=== PATIENT | female | born 1950 | race Caucasian/White ===

== ENCOUNTER 2022-09-11 14:42 | Emergency (ER) | payer BC ==
[~2022-09-11 14:42] MED LIST: CIPROFLOXACIN500 MG PO; MEDROL DOSEPAK4 MG PO
== END 2022-09-11 15:14 | disposition home or self-care (01) ==
LOC: ED 14:42
DX: S80.862A Insect bite (nonvenomous), left lower leg, initial encounter (principal); Z88.6 Allergy status to analgesic agent; W57.XXXA Bitten or stung by nonvenomous insect and other nonvenomous arthropods, initial encounter; Y93.89 Activity, other specified; Y92.89 Other specified places as the place of occurrence of the external cause; Y99.8 Other external cause status

== ENCOUNTER 2024-10-21 10:48 | Emergency (ER) | payer BC ==
[~2024-10-21] VITALS: Ht 154.9 cm; Wt 90.7 kg
[2024-10-21] MEDS ORDERED: VIBRAMYCIN100 MG PO (11:06)
[2024-10-21] MEDS ORDERED: Doxycycline Hyclate 100 MG CAPSULE PO ONE (11:10)
== END 2024-10-21 11:14 | disposition home or self-care (01) ==
LOC: ED 10:48
DX: A69.20 Lyme disease, unspecified (principal); Z88.8 Allergy status to other drugs, medicaments and biological substances

== ENCOUNTER 2025-02-21 12:24 | Emergency (ER) | payer OTHER ==
[~2025-02-21] VITALS: Ht 210.8 cm; Wt 97.5 kg
[~2025-02-21 12:24] MED LIST changes: +VIBRAMYCIN100 MG PO
[2025-02-21 13:11] LABS: MEAN CELL VOLUME 89.5 fl (81.0-99.0); MEAN CORPUSCULAR HGB 30.2 pg (27.0-31.0); MEAN PLATELET VOLUME 10.4 fl (9.6-12.3); NUCLEATED RED BLOOD CELL 0.0 % (0.0-0.0); NUCLEATED RED BLOOD CELL 0.0 10*3/uL (0.0-0.0); PLATELET COUNT AUTOMATED 91 10*3/uL (130-400); RED CELL DISTRI WIDTH 13.0 % (0-14.5)
[2025-02-21 13:13] LABS: BILIRUBIN Negative (Negative); BLOOD Negative (Negative); CLARITY Clear (Clear); COLOR Yellow (Yellow); KETONE Negative (Negative); LEUKO ESTERASE Negative (Negative); NITRITE Negative (Negative); PH 5.0 (4.5-8.0); SPECIFIC GRAVITY <= 1.005 (1.001-1.030); UROBILINOGEN 0.2 E.U./dl (0.0-1.0)
[2025-02-21 13:23] LABS: BACTERIA 2+; RBC 0-2 rbc/hpf (0-2); WBC 0-2 wbc/hpf (0-5)
[2025-02-21 13:32] LABS: BUN 25.0 mg/dl (9-23); CPK 69.0 U/L (34-171); SGPT/ALT 17.0 U/L (5-49)
[2025-02-21 13:37] LABS: MANUAL DIFF REFLEX YES
[2025-02-21 13:43] LABS: PLATELET SUFFICIENCY LOW (NORMAL)
[2025-02-21] MEDS ORDERED: SODIUM CHLORIDE 0.9% 1,000 ML IV ONE (13:45)
== END 2025-02-21 14:19 | disposition home or self-care (01) ==
LOC: ED 12:24
PROVIDERS: Nurse Practitioner Family
DX: S30.0XXA Contusion of lower back and pelvis, initial encounter (principal); S20.213A Contusion of bilateral front wall of thorax, initial encounter; Z88.6 Allergy status to analgesic agent; W19.XXXA Unspecified fall, initial encounter; Y93.89 Activity, other specified; Y92.89 Other specified places as the place of occurrence of the external cause; Y99.8 Other external cause status

== ENCOUNTER 2025-03-01 07:29 | Emergency (ER) | payer OTHER ==
[~2025-03-01] VITALS: Wt 90.7 kg
[2025-03-01] MEDS ORDERED: FUROSEMIDE40 MG PO (07:48)
[2025-03-01] MEDS ORDERED: POTASSIUM CHLO20 ME3 PO (07:48)
[2025-03-01] MEDS ORDERED: LOSARTAN POTAS100 M1 PO (07:48)
[2025-03-01] MEDS ORDERED: METOPROLOL SUCC25 M2 PO (07:48)
[2025-03-01 08:31] LABS: MEAN CELL VOLUME 90.1 fl (81.0-99.0); MEAN CORPUSCULAR HGB 30.0 pg (27.0-31.0); MEAN PLATELET VOLUME 9.7 fl (9.6-12.3); NUCLEATED RED BLOOD CELL 0.0 % (0.0-0.0); NUCLEATED RED BLOOD CELL 0.0 10*3/uL (0.0-0.0); PLATELET COUNT AUTOMATED 186 10*3/uL (130-400); RED CELL DISTRI WIDTH 13.5 % (0-14.5)
[2025-03-01 08:38] LABS: MANUAL DIFF REFLEX YES
[2025-03-01 08:58] LABS: BUN 24 mg/dl (9-23)
[2025-03-01 08:59] LABS: SGPT/ALT < 7 U/L (5-49)
[2025-03-01 09:01] LABS: BILIRUBIN Negative (Negative); BLOOD Negative (Negative); CLARITY Cloudy (Clear); COLOR Dark Yellow (Yellow); KETONE Trace (Negative); LEUKO ESTERASE Negative (Negative); NITRITE Negative (Negative); PH 5.0 (4.5-8.0); SPECIFIC GRAVITY 1.020 (1.001-1.030); UROBILINOGEN 1.0 E.U./dl (0.0-1.0)
[2025-03-01 09:18] LABS: BACTERIA TRACE; EPITHELIAL CELLS TNTC; YEAST 1+
[2025-03-01 09:56] LABS: BASOPHILS 1 % (0-1)
[2025-03-01 09:57] LABS: PLATELET SUFFICIENCY NORMAL (NORMAL)
== END 2025-03-01 11:11 | disposition home or self-care (01) ==
LOC: ED 07:29
PROVIDERS: Student in an Organized Health Care Education/Training Program
DX: R63.0 Anorexia (principal); R53.1 Weakness; R53.83 Other fatigue; Z88.8 Allergy status to other drugs, medicaments and biological substances; Z79.899 Other long term (current) drug therapy